=== PATIENT | female | born 1995 | race American Indian/Alaskan Native ===

== ENCOUNTER 2017-07-19 10:26 | Emergency (ER) | payer OTHER ==
[2017-07-19 10:35] VITALS: TEMP 97; BMI 23.3
[2017-07-19 10:53] VITALS: RESP 18
--- NOTE | 2017-07-19 10:53 | ED PDOC ---
HPI: General Adult Time Seen by Provider: 07/19/17 10:52 Chief Complaint (Nursing): Abdominal Pain Chief Complaint (Provider): with vaginal bleeding History Per: Patient Additional Complaint(s): 22-year-old female presents to emergency department with cramping abdominal pain. Patient is currently 5 weeks . She denies vaginal bleeding at this time. No dysuria or hematuria. Patient states this is her first , . OB: Dr. Orantes Past Medical History Reviewed: Historical Data, Nursing Documentation, Vital Signs Vital Signs: Last Vital Signs Temp 97 F L 07/19/17 10:49 Pulse 83 07/19/17 10:49 Resp 18 07/19/17 10:49 BP 109/61 07/19/17 10:34 Pulse Ox 99 07/19/17 16:41 - Medical History PMH: No Chronic Diseases - Surgical History Surgical History: No Surg Hx - Family History Family History: States: No Known Family Hx - Living Arrangements Living Arrangements: With Family - Social History Current smoker - smoking cessation education provided: Yes (stopped when she found out she was ) Alcohol: None Drugs: Denies - Home Medications Home Medications: Ambulatory Orders Medication Instructions Recorded Naproxen [Naprosyn] 500 mg PO BID PRN #14 tab 03/27/16 Promethazine [Promethazine HCl] 25 mg RC Q4 03/27/16 - Allergies Allergies/Adverse Reactions: Allergies Allergy/AdvReac Type Severity Reaction Status Date / Time No Known Allergies Allergy Verified 03/27/16 04:44 Review of Systems ROS Statement: Except As Marked, All Systems Reviewed And Found Negative Constitutional: Negative for: Fever Gastrointestinal: Positive for: Abdominal Pain () Physical Exam - Reviewed Nursing Documentation Reviewed: Yes Vital Signs Reviewed: Yes - Physical Exam Appears: Positive for: Well, Non-toxic, No Acute Distress Skin: Negative for: Rash Eye Exam: Positive for: Normal appearance Cardiovascular/Chest: Positive for: Regular Rate, Rhythm Respiratory: Positive for: Normal Breath Sounds Gastrointestinal/Abdominal: Positive for: Soft. Negative for: Tenderness Back: Negative for: L CVA Tenderness, R CVA Tenderness Extremity: Positive for: Normal ROM Neurologic/Psych: Positive for: Alert, Oriented - Laboratory Results Result Diagrams: 07/19/17 11:34 07/19/17 11:34 Urine POC: Positive Urine dip results: Negative for: Leukocyte Esterase, Blood, Nitrate, Ketones, Glucose, Bilirubin, Protein - ECG O2 Sat by Pulse Oximetry: 99 Pulse Ox Interpretation: Normal - Other Rad OB TV US X-Ray: Read By Radiologist X-Ray Interpretation: see below Medical Decision Making Medical Decision Makin22 year old female with abd pain Plan: TV OB US CBC CMP Beta quant US: FINDINGS: UTERUS: Measures 3.9 x 6.6 cm. Normal in size and appearance. No fibroid or other mass lesion seen. ENDOMETRIUM: Measures 8.7 mm in diameter. Heterogeneous endometrium with small cystic areas without discrete gestational sac, yolk sac or pole. CERVIX: No cervical abnormality identified. RIGHT OVARY: Measures 1.9 x 2.6 x 2.9 cm. No solid mass. Normal flow. Multiple subcentimeter follicles. LEFT OVARY: Measures 2.4 x 2.8 x 3.1 cm. No solid mass. Normal flow. Cystic structure solid with small saclike component centrally. Overall dimensions 1.1 x 1.5 x 1.3 cm. Saclike component 3.7 x 3.1 mm. FREE FLUID: Free fluid identified in the cul-de-sac and about the left ovary. OTHER FINDINGS: None. IMPRESSION: No visible intrauterine . Findings consistent with left ectopic gestation. OB is Dr. Orantes, case was d/w him, he will come down to see patient. 4:10 pm: Dr. Orantes at bedside to see patient. Patient will receive IM methotrexate in ED. Dr. Orantes obtained consent for medication from patient. IM dose administered by ED attending, Dr. Muse Patient was instructed to return Sunday for repeat beta and next Sunday for repeat beta. Disposition - Clinical Impression Clinical Impression: Ectopic - Patient ED Disposition Is Patient to be Admitted: No Counseled Patient/Family Regarding: Studies Performed, Diagnosis, Need For Followup - Disposition Referrals: Daniel Orantes MD [Staff Provider] - Disposition: Routine/Home Disposition Time: 16:41 Condition: STABLE Additional Instructions: Take [id number] Tylenol or Motrin for pain as needed. Return on Sunday for repeat blood work or sooner for any acutely worsening symptoms. Instructions: Ectopic (DC) Forms: [employer] (Salvadorean) Results - Lab Results Lab Results: 02/15/18 02/15/18 11:34 11:34 WBC 5.8 RBC 4.43 Hgb 13.5 Hct 40.8 MCV 92.1 MCH 30.5 MCHC 33.1 RDW 13.3 Plt Count 206 MPV 10.5 Neut % (Auto) 71.8 Lymph % (Auto) 21.2 Dougherty % (Auto) 6.1 Eos % (Auto) 0.6 Baso % (Auto) 0.3 Neut # (Auto) 4.2 Lymph # (Auto) 1.2 Dougherty # (Auto) 0.4 Eos # (Auto) 0.0 Baso # (Auto) 0.0 Sodium 141 Potassium 4.0 Chloride 104 Carbon Dioxide 25 Anion Gap 16 BUN 10 Creatinine 0.6 L Est GFR ( Amer) > 60 Est GFR (Non-Af Amer) > 60 Random Glucose 88 Calcium 9.5 Total Bilirubin 1.1 AST 44 H ALT 32 Alkaline Phosphatase 61 Total Protein 8.4 H Albumin 4.9 Globulin 3.5 Albumin/Globulin Ratio 1.4 Beta HCG, Quant 2724.70
[2017-07-19 11:48] LABS: BASO % 0.3 % (0.0-2.0); EOS % 0.6 % (0.0-4.0); HEMOGLOBIN 13.5 g/dL (12.0-16.0); LYMPH # 1.2 K/uL (1.0-4.3); LYMPH % 21.2 % (20.0-40.0); MEAN CELL VOLUME 92.1 fl (81.0-99.0); MEAN CORPUSCULAR HEMOGLOBIN 30.5 pg (27.0-31.0); MEAN CORPUSCULAR HGB CONC 33.1 g/dL (33.0-37.0); MEAN PLATELET VOLUME 10.5 fl (7.2-11.7); MONO # 0.4 K/uL (0.0-0.8); MONO % 6.1 % (0.0-10.0); NEUT # 4.2 K/uL (1.8-7.0); NEUT % 71.8 % (50.0-75.0); NRBC % 0.1 % (0.0-0.0); RBC 4.43 Mil/uL (3.80-5.20); RED CELL DISTRIBUTION WIDTH 13.3 % (11.5-14.5); WHITE BLOOD COUNT 5.8 K/uL (4.8-10.8)
[2017-07-19 12:13] LABS: CALCIUM 9.5 mg/dL (8.4-10.2); GFR AFRICAN-AMERICAN > 60; GFR NON-AFRICAN AMERICAN > 60
[2017-07-19 12:33] LABS: ALB/GLOB RATIO 1.4 (1.0-2.1); ALBUMIN 4.9 g/dL (3.5-5.0); ALT/SGPT 32 U/L (9-52); AST/SGOT 44 U/L (14-36); BLOOD UREA NITROGEN 10 mg/dl (7-17)
--- NOTE | 2017-07-19 12:56 | US ---
HISTORY: Fiber weeks with pain. Beta HCG results: 2724. LMP 06/11/2017 COMPARISON: None available. TECHNIQUE: Transvaginal only. Real -time technique with 2D, duplex and color Doppler FINDINGS: UTERUS: Measures 3.9 x 6.6 cm. Normal in size and appearance. No fibroid or other mass lesion seen. ENDOMETRIUM: Measures 8.7 mm in diameter. Heterogeneous endometrium with small cystic areas without discrete gestational sac, yolk sac or pole. CERVIX: No cervical abnormality identified. RIGHT OVARY: Measures 1.9 x 2.6 x 2.9 cm. No solid mass. Normal flow. Multiple subcentimeter follicles. LEFT OVARY: Measures 2.4 x 2.8 x 3.1 cm. No solid mass. Normal flow. Cystic structure solid with small saclike component centrally. Overall dimensions 1.1 x 1.5 x 1.3 cm. Saclike component 3.7 x 3.1 mm. FREE FLUID: Free fluid identified in the cul-de-sac and about the left ovary. OTHER FINDINGS: None. IMPRESSION: No visible intrauterine . Findings consistent with left ectopic gestation. Communication of results: 1. Study completed 12:25. 2. Communication of critical results 12:53. Verbal results provided to Dr. Muse in the emergency department.
[2017-07-19] MEDS ORDERED: Methotrexate 50 mg/2 ml Inj IM ONE (16:30)
[2017-07-19 17:44] VITALS: BP 120/78; PULSE 78; O2SAT 98
--- NOTE | 2017-07-19 23:55 | CP.PCM.CON ---
History of Present Illness - History of Present Illness History of Present Illness: 22-year-old female presents with mild lower abdominal cramping. Patient denies any pain, nausea vomiting, vaginal bleeding. Patient had beta hCG of approximately 2700. On ultrasound, no IUP observed and structure in the left adnexa consistent with ectopic . Past Patient History - Infectious Disease Hx of Infectious Diseases: None - Past Social History Alcohol: None Drugs: Denies - PSYCHIATRIC Hx Substance Use: No - SURGICAL HISTORY Hx Surgeries: No - ANESTHESIA Hx Anesthesia: No Hx Anesthesia Reactions: No Hx Malignant Hyperthermia: No Meds Allergies/Adverse Reactions: Allergies Allergy/AdvReac Type Severity Reaction Status Date / Time No Known Allergies Allergy Verified 03/27/16 04:44 Physical Exam - Constitutional Appears: Well, Non-toxic, No Acute Distress - Respiratory Exam Respiratory Exam: Clear to Auscultation Bilateral, NORMAL BREATHING PATTERN - Cardiovascular Exam Cardiovascular Exam: REGULAR RHYTHM - GI/Abdominal Exam Additional comments: Soft, nontender, nondistended. No rebound, no guarding. No tenderness even with deep palpation. Results - Vital Signs Recent Vital Signs: Last Vital Signs Temp 97 F L 07/19/17 17:43 Pulse 78 07/19/17 17:43 Resp 18 07/19/17 17:43 BP 120/78 07/19/17 17:43 Pulse Ox 98 07/19/17 17:43 - Labs Result Diagrams: 07/19/17 11:34 07/19/17 11:34 Labs: Laboratory Results - last 24 hr 07/19/17 07/19/17 11:34 11:34 WBC 5.8 RBC 4.43 Hgb 13.5 Hct 40.8 MCV 92.1 MCH 30.5 MCHC 33.1 RDW 13.3 Plt Count 206 MPV 10.5 Neut % (Auto) 71.8 Lymph % (Auto) 21.2 Bent % (Auto) 6.1 Eos % (Auto) 0.6 Baso % (Auto) 0.3 Neut # (Auto) 4.2 Lymph # (Auto) 1.2 Bent # (Auto) 0.4 Eos # (Auto) 0.0 Baso # (Auto) 0.0 Sodium 141 Potassium 4.0 Chloride 104 Carbon Dioxide 25 Anion Gap 16 BUN 10 Creatinine 0.6 L Est GFR ( Amer) > 60 Est GFR (Non-Af Amer) > 60 Random Glucose 88 Calcium 9.5 Total Bilirubin 1.1 AST 44 H ALT 32 Alkaline Phosphatase 61 Total Protein 8.4 H Albumin 4.9 Globulin 3.5 Albumin/Globulin Ratio 1.4 Beta HCG, Quant 2724.70 - Imaging and Cardiology US - abdomen Status: Report reviewed by me Assessment & Plan - Assessment and Plan (Free Text) Assessment: Ectopic . Plan: I discussed with patient results of ultrasound and blood work. I discussed with patient general information regarding ectopic . I discussed with patient options of treatment including methotrexate treatment for surgical treatment. After discussion of options, patient opted for methotrexate treatment. I discussed with patient risks, benefits, alternatives of methotrexate treatment. I discussed with patient possible side effects including GI discomfort, anemia. Also discussed with patient the risks of medication failure requiring surgical management. I discussed with patient the plan of care including timing of observation and rechecking hCG levels to ensure success of medication. I instructed patient to return to the emergency department immediately if any abdominal pain, syncope, lightheadedness, nausea or vomiting, vaginal bleeding. Consent patient methotrexate treatment. All patient questions answered. I discussed plan with the emergency room attending. Plan to have the patient return to the emergency department on day 4 and on day 7 for monitoring of hCG levels. - Date & Time Date: 07/19/17 Time: 17:00
== END 2017-07-19 17:44 | disposition home or self-care (01) ==
LOC: H.ER 10:26
DX: O00.90 Unspecified ectopic pregnancy without intrauterine pregnancy (principal); Z3A.01 Less than 8 weeks gestation of pregnancy; O99.331 Smoking (tobacco) complicating pregnancy, first trimester
CPT/HCPCS: 76817; 80053; 81025; 84702; 85025; 96372; 99282; J9250

== ENCOUNTER 2017-07-22 13:40 | Emergency (ER) | payer OTHER ==
[2017-07-22 14:31] VITALS: BMI 23.5
[2017-07-22 14:32] VITALS: BP 107/66; PULSE 89; RESP 16; TEMP 98.1; O2SAT 100
--- NOTE | 2017-07-22 16:08 | ED PDOC ---
HPI: General Adult Time Seen by Provider: 07/22/17 15:51 Chief Complaint (Nursing): Abnormal Labs Chief Complaint (Provider): Evaluation History Per: Patient History/Exam Limitations: no limitations Onset/Duration Of Symptoms: Days (2 days ago) Current Symptoms Are (Timing): Still Present Additional Complaint(s): 22 yo female presents to the ED for evaluation and blood work 2 days post medically induced . Patient reports of no pain and minimal vaginal bleeding. Past Medical History Reviewed: Historical Data, Nursing Documentation, Vital Signs Vital Signs: Last Vital Signs Temp 98.1 F 07/22/17 14:32 Pulse 89 07/22/17 14:32 Resp 16 07/22/17 14:32 BP 107/66 07/22/17 14:32 Pulse Ox 100 07/22/17 16:11 - Medical History PMH: No Chronic Diseases - Surgical History Other surgeries: medically induced - Family History Family History: States: Unknown Family Hx - Social History Current smoker - smoking cessation education provided: No Ex-Smoker (has not smoked in the last 12 months): No Alcohol: None Drugs: Denies - Immunization History Hx Tetanus Toxoid Vaccination: No Hx Influenza Vaccination: No Hx Pneumococcal Vaccination: No - Home Medications Home Medications: Ambulatory Orders Medication Instructions Recorded Naproxen [Naprosyn] 500 mg PO BID PRN #14 tab 03/27/16 Promethazine [Promethazine HCl] 25 mg RC Q4 03/27/16 - Allergies Allergies/Adverse Reactions: Allergies Allergy/AdvReac Type Severity Reaction Status Date / Time No Known Allergies Allergy Verified 03/27/16 04:44 Review of Systems ROS Statement: Except As Marked, All Systems Reviewed And Found Negative Constitutional: Negative for: Fever Genitourinary Female: Positive for: Vaginal Bleeding (minimal) Physical Exam - Reviewed Nursing Documentation Reviewed: Yes Vital Signs Reviewed: Yes - Physical Exam Appears: Positive for: Well, Non-toxic, No Acute Distress Head Exam: Positive for: ATRAUMATIC, NORMAL INSPECTION, NORMOCEPHALIC Skin: Positive for: Normal Color, Warm, DRY Eye Exam: Positive for: EOMI, Normal appearance, PERRL ENT: Positive for: Normal ENT Inspection Neck: Positive for: Normal, Painless ROM Cardiovascular/Chest: Positive for: Regular Rate, Rhythm. Negative for: Murmur Respiratory: Positive for: Normal Breath Sounds. Negative for: Respiratory Distress Gastrointestinal/Abdominal: Positive for: Normal Exam, Soft. Negative for: Tenderness, Mass (palpable masses) Back: Positive for: Normal Inspection Extremity: Positive for: Normal ROM. Negative for: Pedal Edema, Deformity Neurologic/Psych: Positive for: Alert, Oriented. Negative for: Motor/Sensory Deficits - ECG O2 Sat by Pulse Oximetry: 100 (RA) Pulse Ox Interpretation: Normal Medical Decision Making Medical Decision Making: Time: --16:05 Impression: --Evaluation post Plan: --beta-hcg, quantitative Reassess -- Scribe Attestation: Documented by Hiren Newell acting as a scribe for Dilan Steve DO. Provider Attestation: All medical record entries made by the Scribe were at my direction and personally dictated by me. I have reviewed the chart and agree that the record accurately reflects my personal performance of the history, physical exam, medical decision making, and the department course for this patient. I have also personally directed, reviewed, and agree with the discharge instructions and disposition. Disposition - Clinical Impression Clinical Impression: Ectopic - Patient ED Disposition Is Patient to be Admitted: No - Disposition Disposition Time: 17:00 Condition: STABLE Additional Instructions: Return to ER July 25 for repeat blood test. Return sooner for increased bleeding or pain. Forms: [employer] (Ukrainian)
== END 2017-07-22 16:59 | disposition home or self-care (01) ==
LOC: H.ER 13:40
DX: O00.90 Unspecified ectopic pregnancy without intrauterine pregnancy (principal)

== ENCOUNTER 2017-07-25 16:28 | Emergency (ER) | payer OTHER ==
[2017-07-25 16:28] VITALS: BMI 23.5
[2017-07-25 17:12] VITALS: RESP 16; O2SAT 100
--- NOTE | 2017-07-25 18:27 | ED PDOC ---
HPI: General Adult Time Seen by Provider: 07/25/17 17:41 Chief Complaint (Nursing): Abnormal Labs Chief Complaint (Provider): Labs History Per: Patient History/Exam Limitations: no limitations Onset/Duration Of Symptoms: Days Have you had recent travel within the past 21 days to any of the following countries: [place], [place], [place] or [place]?: No Additional Complaint(s): 22yo female, at approximately 5.5 weeks was seen in the ED 5 days ago and was diagnosed with a left sided ectopic . She was given methotrexate IM and her beta level at that time was 2724. She came for a follow up 3 days ago and her beta level then was 4672. Patient presents today for another repeat labs. She reports intermittent sharp pain, lasting few seconds but resolving spontaneously every couple hours for the past 3 days. She denies any vaginal bleeding. No other complaints. Past Medical History Reviewed: Historical Data, Nursing Documentation, Vital Signs Vital Signs: Last Vital Signs Temp 98.2 F 07/25/17 17:09 Pulse 96 H 07/25/17 17:09 Resp 16 07/25/17 17:09 BP 129/77 07/25/17 17:09 Pulse Ox 100 07/25/17 21:35 - Medical History PMH: No Chronic Diseases - Surgical History Surgical History: No Surg Hx - Family History Family History: States: Unknown Family Hx - Immunization History Hx Tetanus Toxoid Vaccination: No Hx Influenza Vaccination: No Hx Pneumococcal Vaccination: No - Home Medications Home Medications: Ambulatory Orders Medication Instructions Recorded Naproxen [Naprosyn] 500 mg PO BID PRN #14 tab 03/27/16 Promethazine [Promethazine HCl] 25 mg RC Q4 03/27/16 - Allergies Allergies/Adverse Reactions: Allergies Allergy/AdvReac Type Severity Reaction Status Date / Time No Known Allergies Allergy Verified 07/25/17 17:09 Review of Systems ROS Statement: Except As Marked, All Systems Reviewed And Found Negative Genitourinary Female: Positive for: Pelvic Pain. Negative for: Vaginal Discharge, Vaginal Bleeding Physical Exam - Reviewed Nursing Documentation Reviewed: Yes Vital Signs Reviewed: Yes - Physical Exam Appears: Positive for: Non-toxic, No Acute Distress Head Exam: Positive for: NORMAL INSPECTION Skin: Positive for: Normal Color Cardiovascular/Chest: Positive for: Regular Rate, Rhythm Respiratory: Positive for: Normal Breath Sounds. Negative for: Respiratory Distress Gastrointestinal/Abdominal: Positive for: Normal Exam, Soft. Negative for: Tenderness Neurologic/Psych: Positive for: Alert, Oriented. Negative for: Motor/Sensory Deficits - ECG O2 Sat by Pulse Oximetry: 100 (RA) Pulse Ox Interpretation: Normal Medical Decision Making Medical Decision Making: Impression: Repeat labs Plan: -- Beta HCG level Time: 1814 Beta HCG level of 4796.60 Time: [address] Dorantes, OBGYN business continuity global director who is requesting a repeat ultrasound. US ordered. Time: 2129 US Transvaginal FINDINGS: Uterus/cervix: Uterus measures approximately 7 x 4 x 5.3 cm. endometrium measures approximate 9 mm in width. No myometrial mass. Right ovary: Right ovary measures approximately 2.4 x 1.1 by 2.3 cm.There are multiple small follicles. There is intraovarian blood flow. Left ovary: Left ovary measures approximately 2.7 x 1.2 x 2 cm. There are multiple small follicles. There is intraovarian blood flow. There is a 1.6 x 1.5 x 1.4 cm left adnexal mass. Central cystic portions measures approximate 7 x 8 mm.. There is hypervascular rim. Free fluid: There is a small amount of free fluid Bladder: Empty bladder which cannot be evaluated with this probe. IMPRESSION: Left ectopic gestation with continued vascular flow and free fluid Case discussed with Dr. Dorantes including labs and US results over the last week. IM injection of methotrexated given in the right gluteal region by Dr. Dorantes in ER. Pt aware of return to ER on 08/01/17 for repeat beta HcG and re-evaluation. Scribe Attestation: Documented by Milla Workman acting as a scribe for Thalia Rai PA-C Provider Attestation: All medical record entries made by the Scribe were at my direction and personally dictated by me. I have reviewed the chart and agree that the record accurately reflects my personal performance of the history, physical exam, medical decision making, and the department course for this patient. I have also personally directed, reviewed, and agree with the discharge instructions and disposition. Disposition - Clinical Impression Clinical Impression: Ectopic - Patient ED Disposition Is Patient to be Admitted: No - Disposition Disposition: Routine/Home Disposition Time: 23:12 Condition: GOOD Additional Instructions: Please return to ER on 08/01/17. Return soon for increased pain, lightheadedness/ dizziness. Instructions: Ectopic Forms: [employer] (Thai)
--- NOTE | 2017-07-25 21:31 | US ---
EXAM: US Pelvis, Transvaginal EXAM DATE/TIME: 07/25/2017 7:08 PM CLINICAL HISTORY: 22 years old, female; Signs and symptoms; Other: F/u for lt ectopic; Additional info: Ectopic, beta 4800, beta hCG 2724 on 07/19/17 TECHNIQUE: Real-time transvaginal pelvic ultrasound (complete) with image documentation. Transvaginal imaging was used for better evaluation of the endometrium and adnexa. COMPARISON: Prior images are not available for review. Correlation is made with a report dated 07/19/17 FINDINGS: Uterus/cervix: Uterus measures approximately 7 x 4 x 5.3 cm. endometrium measures approximate 9 mm in width. No myometrial mass. Right ovary: Right ovary measures approximately 2.4 x 1.1 by 2.3 cm.There are multiple small follicles. There is intraovarian blood flow. Left ovary: Left ovary measures approximately 2.7 x 1.2 x 2 cm. There are multiple small follicles. There is intraovarian blood flow. There is a 1.6 x 1.5 x 1.4 cm left adnexal mass. Central cystic portions measures approximate 7 x 8 mm.. There is hypervascular rim. Free fluid: There is a small amount of free fluid Bladder: Empty bladder which cannot be evaluated with this probe. IMPRESSION: Left ectopic gestation with continued vascular flow and free fluid
[2017-07-25] MEDS ORDERED: Methotrexate 50 mg/2 ml Inj IM STA (22:01)
[2017-07-26 06:19] VITALS: BP 129/72; PULSE 73; TEMP 98.3
== END 2017-07-25 23:16 | disposition home or self-care (01) ==
LOC: H.ER 16:28
DX: O00.90 Unspecified ectopic pregnancy without intrauterine pregnancy (principal)
CPT/HCPCS: 76830; 84702; 96372; 99281; J9250

== ENCOUNTER 2017-08-01 17:25 | Emergency (ER) | payer OTHER ==
[2017-08-01 17:25] VITALS: BMI 23.5
[2017-08-01 17:43] VITALS: BP 116/74; PULSE 82; RESP 18; TEMP 98.4; O2SAT 100
--- NOTE | 2017-08-01 17:58 | ED PDOC ---
HPI: General Adult Time Seen by Provider: 08/01/17 17:55 Chief Complaint (Nursing): Medical Clearance Chief Complaint (Provider): reepat labs History Per: Patient Additional Complaint(s): 22 year old female presents to ED for repeat beta. Patient was diagnosed with ectopic on 07/19/17. Patient received methotrexate on that date and was told to return for repeat labs. On subsequent visit her beta was higher and she ended up having a second dose of methotrexate on . Patient was instructed to return today for additional lab work. Patient states today she has no pain but is bleeding and states the bleeding is similar to her regular menstrual cycle. Past Medical History Reviewed: Historical Data, Nursing Documentation, Vital Signs Vital Signs: Last Vital Signs Temp 98.4 F 08/01/17 17:41 Pulse 82 08/01/17 17:41 Resp 18 08/01/17 17:41 BP 116/74 08/01/17 17:41 Pulse Ox 100 08/01/17 19:22 - Medical History PMH: No Chronic Diseases - Surgical History Surgical History: No Surg Hx - Family History Family History: States: No Known Family Hx - Living Arrangements Living Arrangements: With Family - Social History Current smoker - smoking cessation education provided: No Alcohol: None Drugs: Denies - Home Medications Home Medications: Ambulatory Orders Medication Instructions Recorded Naproxen [Naprosyn] 500 mg PO BID PRN #14 tab 03/27/16 Promethazine [Promethazine HCl] 25 mg RC Q4 03/27/16 - Allergies Allergies/Adverse Reactions: Allergies Allergy/AdvReac Type Severity Reaction Status Date / Time No Known Allergies Allergy Verified 07/25/17 17:09 Review of Systems ROS Statement: Except As Marked, All Systems Reviewed And Found Negative Gastrointestinal: Negative for: Abdominal Pain Genitourinary Female: Positive for: Vaginal Bleeding. Negative for: Dysuria, Pelvic Pain Physical Exam - Reviewed Nursing Documentation Reviewed: Yes Vital Signs Reviewed: Yes - Physical Exam Appears: Positive for: Well, Non-toxic, No Acute Distress Skin: Negative for: Rash Eye Exam: Positive for: Normal appearance Cardiovascular/Chest: Positive for: Regular Rate, Rhythm Respiratory: Positive for: Normal Breath Sounds Gastrointestinal/Abdominal: Positive for: Soft. Negative for: Tenderness, Distended Extremity: Positive for: Normal ROM Neurologic/Psych: Positive for: Alert, Oriented - ECG O2 Sat by Pulse Oximetry: 100 Pulse Ox Interpretation: Normal Medical Decision Making Medical Decision Makin-year-old female here for repeat beta Plan: Beta quant On July 19, beta was 2724, methotrexate was given On July 22 beta was 4672 On July 25 beta was 4796, second methotrexate given Today beta is 1880. Case was discussed with Dr. Ivey covering for Dr. Orantes who states that patient is stable for discharge and can follow up next week with Dr. Orantes for repeat beta. Disposition - Clinical Impression Clinical Impression: Ectopic - Patient ED Disposition Is Patient to be Admitted: No Counseled Patient/Family Regarding: Diagnosis, Need For Followup - Disposition Referrals: Daniel Orantes MD [Staff Provider] - Disposition: Routine/Home Disposition Time: 19:39 Condition: STABLE Additional Instructions: Follow-up next week with Dr. Oratnes for repeat blood work. Instructions: Ectopic (DC) Forms: [employer] (Telugu)
== END 2017-08-01 19:54 | disposition home or self-care (01) ==
LOC: H.ER 17:25
DX: O00.90 Unspecified ectopic pregnancy without intrauterine pregnancy (principal)